=== PATIENT | female | born 1975 | race Caucasian/White ===

== ENCOUNTER 2017-02-24 17:43 | Emergency (ER) | payer MEDICAID ==
[~2017-02-24] VITALS: Wt 65.0 kg
[~2017-02-24 17:43] MED LIST: ACET1TAB40 PO; ACET500T98; BENZ100C70 PO; CEPH-443 PO; DEPO SHOT; ESOM20CA; FIORICET PO; FLUT9.9S NASAL; HYDR-3498 PO; IBUP-1542 PO; NAPR-260 PO; NORT50CA3 PO; TRAM50TA2
[2017-02-24] MEDS ORDERED: HC1C30 TOP (18:44)
--- NOTE | 2017-02-24 18:44 | ERD ---
ER Documentation Chief Complaint Date/Time DATE: 02/24/17 TIME: 18:37 Chief Complaint RASH TO CHEST AREA UNCLEAR WHEN IT STARTED HPI 42-year-old female presents to the emergency room for bilateral armpit rashes for about 3-4 weeks. Stated that it is itchy. Denies headache, loss of consciousness, dizziness, blurry vision, changes in vision, photophobia, facial pain, ear pain, throat pain, difficulty swallowing, neck pain, shoulder pain, chest pain, cough, hemoptysis, abdominal pain, back pain, loss of appetite, nausea, vomiting, hematochezia, diarrhea, constipation, urinary symptoms, , the possibility of being , bladder and bowel incontinences, extremity weakness, extremity tenderness, numbness or tingling sensation, difficulty walking, recent travel, recent exposure to illness, recent antibiotic use in the last 3 months, fever, chills. Allergy: No known drug allergies. PMH: Asthma. Family medical history: AO LMP: "Unknown." Depo shot (unknown date). Medications: Pro-air. Surgery: 2. Primary Social History: Not working at this time Denies smoking, use of alcohol, use of illegal drugs. ROS All systems reviewed and are negative except as per history of present illness. Medications Home Meds Active Scripts Hydrocortisone* Topical (Hydrocortisone* Topical) 1%-28.35 Gm Cream..g., 1 APPLIC TOP Q6 Y for ITCHING, #1 TUB Prov:LITTLE BACK 02/24/17 Acetamin/Butalbital/Caffeine* (Fioricet*) [id number] Tab, 1 TAB PO Q6H Y for PAIN, #30 TAB Prov:HENRRY DOMINGUEZ PA-C 08/20/16 Cephalexin* (Keflex*) 500 Mg Capsule, 500 MG PO QID for 7 Days, CAP Prov:HENRRY DOMINGUEZ PA-C 08/20/16 Hydrocodone Bit-Acetaminophen* (Bryce*) 5-325 Mg Tab, 1 TAB PO Q6 Y for PAIN, # 14 TAB Prov:MILO ORNELAS PA-C 03/15/16 Ibuprofen* (Motrin*) 600 Mg Tab, 600 MG PO Q6, #20 TAB Prov:MILO ORNELAS PA-C 03/15/16 Ibuprofen* (Motrin*) 600 Mg Tab, 600 MG PO Q6, #30 TAB Prov:BRYCE DAN PA-C 02/03/16 Benzonatate* (Tessalon Perle*) 100 Mg Capsule, 100 MG PO Q8H Y for COUGH, #30 CAP Prov:ALEIDA KAPOOR PA-C 12/25/15 Fluticasone Propionate (Flonase Allergy Relief) 9.9 [place].susp, 1 SPRAY NASAL BID for 21 Days, BOTTLE TO EACH NOSTRIL Prov:ALEIDA KAPOOR PA-C 12/25/15 Acetaminophen-Codeine* (Acetaminophen-Cod #3*) 300-30 Mg Tab, 1 TAB PO Q4H Y for PAIN LEVEL 6-10, #15 TAB Prov:CHOASIF 04/26/15 Ibuprofen* (Motrin*) 600 Mg Tab, 600 MG PO Q6, #15 TAB Prov:CHO,ASIF 04/26/15 Reported Medications Esomeprazole Mag Trihydrate (Nexium) 20 Mg Capsule. 11/16/14 Tramadol HCl (Tramadol HCl) 50 Mg Tablet 11/16/14 [Depo Shot] No Conflict Check 10/25/12 Naproxen* (Naprosyn*) 500 Mg Tablet, 500 MG PO BID 09/14/12 Nortriptyline Hcl* (Pamelor*) 50 Mg Capsule, 75 MG PO DAILY, 0 Refills 09/14/12 Acetaminophen (Tylenol) 500 Mg Tab 03/30/12 Allergies Allergies: Coded Allergies: No Known Allergy (Verified , 02/03/16) PMhx/Soc History of Surgery: Yes ( x 2) Anesthesia Reaction: No Hx Neurological Disorder: No Hx Respiratory Disorders: Yes (hx of asthma) Hx Cardiac Disorders: No Hx Psychiatric Problems: No Hx Miscellaneous Medical Probl: No Hx Alcohol Use: No Hx Substance Use: No Hx Tobacco Use: No Physical Exam Vitals Vital Signs Date Time Temp Pulse Resp B/P Pulse Ox O2 Delivery O2 Flow Rate FiO2 02/24/17 17:46 98.0 95 18 134/82 100 Physical Exam Const: Head: Atraumatic Eyes: Normal Conjunctiva ENT: Normal External Ears, Nose and Mouth. Neck: Full range of motion..~ No meningismus. Resp: Clear to auscultation bilaterally Cardio: Regular rate and rhythm, no murmurs Abd: Soft, non tender, non distended. Normal bowel sounds Skin: No petechiae. No vesicular rash. Noted dry scaly rash to bilateral armpits. No bleeding. No discharge. Back: No midline or flank tenderness Ext: No cyanosis, or edema Neur: Awake and alert Psych: Normal Mood and Affect Procedures/MDM Examination: Please see physical examination Disease process, medical treatment was explained to the patient and family member. They verbalized understanding and agreed with the medical treatment, and follow-up care. Differential diagnosis: Scabies versus shingles versus ringworm versus atopic dermatitis Medical decision makin-year-old female presents to the emergency room for bilateral armpit rashes for about 3-4 weeks. Stated that it is itchy. Patient' s complaint, my physical findings, with patient's history about her complaint are consistent with my final diagnosis of dermatitis. Medications prescribed are the following: Hydrocortisone cream. Patient and family member are made aware of the side effects and adverse reactions of the medications prescribed. Instructed on when to seek emergent and medical attention in case allergic/anaphylactic reactions or severe side effects and or adverse reactions to medications. Patient and family member verbalized understanding. Patient instructed Instructed to follow-up with his PCP in 24-48 hours. Stated that she will see her primary care physician in the next 24-48 hours. She was also instructed to have her primary care physician referred to compliance attorney if her symptoms get worse. Instructed to Call 911 for chest pain, shortness of breath. Advised to come back here in ED as soon as possible for severity of symptoms which includes but not limited to: any new symptoms; shortness of breath/difficulty of breathing; cardiovascular changes; severe gastrointestinal symptoms; signs and symptoms of bleeding and or infection; signs of compartment syndrome/neurovascular changes; neurological changes/deficits. Patient and family member verbalized understanding. Upon discharge, patient is alert and oriented x 4, speaks full and clear sentences, denies pain, has no neurological deficits, has no neurovascular deficits, difficulty of breathing. Breathing even and unlabored. Lung sounds are clear to auscultation. Not in distress. Appears comfortable. Ambulatory with steady gait. Appears satisfied with care provided here in ED. Departure Diagnosis: Primary Impression: Rash Condition: Good Additional Instructions: Patient instructed Instructed to follow-up with his PCP in 24-48 hours. Stated that she will see her primary care physician in the next 24-48 hours. She was also instructed to have her primary care physician referred to compliance attorney if her symptoms get worse. Instructed to Call 911 for chest pain, shortness of breath. Advised to come back here in ED as soon as possible for severity of symptoms which includes but not limited to: any new symptoms; shortness of breath/difficulty of breathing; cardiovascular changes; severe gastrointestinal symptoms; signs and symptoms of bleeding and or infection; signs of compartment syndrome/neurovascular changes; neurological changes/deficits. Patient and family member verbalized understanding. LITTLE BACK Feb 24, 2017 18:44 bleeding and or infection; signs of compartment syndrome/neurovascular changes; neurological changes/deficits. Patient and family member verbalized understanding. LITTLE BACK Feb 24, 2017 18:44
== END 2017-02-24 18:45 | disposition home or self-care (01) ==
LOC: E/R 17:43
DX: R21 Rash and other nonspecific skin eruption (principal); J45.909 Unspecified asthma, uncomplicated
CPT/HCPCS: 99283

== ENCOUNTER 2017-05-31 15:37 | Emergency (ER) | END 2017-05-31 16:48 | disposition home or self-care (01) | DX: H57.11 Ocular pain, right eye (principal); J45.909 Unspecified asthma, uncomplicated | CPT/HCPCS: Z7502; Z7610 ==

== ENCOUNTER 2019-07-12 11:36 | Emergency (ER) | payer MEDICAID ==
[~2019-07-12] VITALS: Ht 152.4 cm; Wt 89.0 kg
[~2019-07-12 11:36] MED LIST changes: +AMOX1TAB10 PO; +BENZ-6 PO; -BENZ100C70 PO; +ERYTOPOI LEFT EYE; +HC1C30 TOP; +HYDR-4011 PO; -NAPR-260 PO; +NAPR-985 PO
[2019-07-12 11:39] VITALS: BP 147/80; PULSE 80; RESP 18; Ht 152.4 cm; Wt 89.0 kg
[2019-07-12] MEDS ORDERED: KETOROLAC 60 MG INJ IM STA (12:01)
[2019-07-12] MEDS ORDERED: DEXAMETHASONE 10 MG/ML 1 ML INJ IM ONE (12:30)
== END 2019-07-12 13:34 | disposition home or self-care (01) ==
LOC: FTE 11:36
DX: K08.89 Other specified disorders of teeth and supporting structures (principal); M25.561 Pain in right knee; M25.562 Pain in left knee; J45.909 Unspecified asthma, uncomplicated
CPT/HCPCS: 73562; 81025; 96372; J1100; J1885; Z7502